=== PATIENT | male | born 1935 | race Caucasian/White ===

== ENCOUNTER 2023-01-03 06:51 | Inpatient (IN) | payer MEDICARE ==
[~2023-01-03] VITALS: Ht 170.2 cm; Wt 84.4 kg
[2023-01-03] VITALS (49 sets, daily range): BP systolic 81–121; BP diastolic 26–81
[2023-01-03] MEDS ORDERED: VANCOMYCIN 1 GM in IV D5W 250 ML IV ONE ×2 (07:00→10:30)
[2023-01-03] MEDS ORDERED: CEFEPIME 1 GM in IV D5W 50 ML IV ONE (07:00)
[2023-01-03] MEDS ORDERED: IV NS 0.9% 1,000 ML BAG IV ONE (07:00)
[2023-01-03] MEDS ORDERED: LIDOCAINE 2% JEL UROJET 10 ML MM ONE (07:04)
[2023-01-03] MEDS ORDERED: CEFEPIME 1 GM VIAL ONE (07:08)
[2023-01-03] MEDS ORDERED: ACETAMINOPHEN ES 500 MG TABLET ONE (07:10)
[2023-01-03] MEDS ORDERED: VANCOMYCIN 1 GM VIAL ONE (07:19)
[2023-01-03] MEDS ORDERED: ACETAMINOPHEN ES 500 MG TABLET PO ONE (07:30)
[2023-01-03 07:33] LABS: BASOPHILS % (AUTO) 0.1 % (0.0-2.0); BILIRUBIN,URINE NEGATIVE (NEGATIVE); COLOR,URINE DARK YELLOW (YELLOW); HEMATOCRIT 33 % (39-51); HEMOGLOBIN 10.9 g/dL (13.5-17.5); LEUKOCYTE ESTERASE ,URINE 3+ (NEGATIVE); LYMPHOCYTES # (AUTO) 0.4 K/uL (0.8-4.8); LYMPHOCYTES % (AUTO) 3.4 % (20.0-44.0); MEAN CORPUSCULAR HGB CONC 33 g/dl (31.0-36.0); MEAN CORPUSCULAR VOLUME 95 fL (80-96); MONOCYTES # (AUTO) 0.6 K/uL (0.1-1.30); MONOCYTES % (AUTO) 5.3 % (2.0-12.0); NEUTROPHILS % (AUTO) 91.2 % (43.0-81.0); NITRITE, URINE NEGATIVE (NEGATIVE); PH,URINE 5.5 (5.0-8.0); PLATELET COUNT (AUTO) 170 K/uL (150-450); PROTEIN,URINE 2+ mg/dl (NEGATIVE); RED BLOOD CELL COUNT(AUTO) 3.49 MIL/uL (4.5-6.0); UGLUCOSE NEGATIVE (NEGATIVE); UROBILINOGEN,URINE 0.2 EU/dL (0.2); WHITE BLOOD COUNT (AUTO) 10.9 K/uL (4.3-11.0)
[2023-01-03 07:35] LABS: BACTERIA,URINE Many /HPF (None Seen); SQUAMOUS EPITHELIAL CELL,UR Few /HPF (None Seen); WBC,URINE 21-50 /HPF (0-3)
[2023-01-03 07:45] LABS: ALANINE AMINOTRANSFERASE 11 U/L (12-78); ALBUMIN 2.5 g/dL (3.4-5.0); ALKALINE PHOSPHATASE 122 U/L (46-116); ASPARTATE AMINOTRANSFERASE 29 U/L (15-37); BILIRUBIN,DIRECT 0.6 mg/dL (0.0-0.2); BILIRUBIN,TOTAL 1.5 mg/dL (0.2-1.0); CALCIUM, SERUM 8.4 mg/dL (8.5-10.1); CARBON DIOXIDE 25 mmol/L (21-32); CHLORIDE 102 mmol/L (98-107); CREATININE 1.9 mg/dL (0.6-1.3); GLUCOSE 139 mg/dL (74-106); POTASSIUM 3.5 mmol/L (3.5-5.1); SODIUM SERUM 137 mmol/L (136-145); TOTAL PROTEIN, SERUM 6.1 g/dL (6.4-8.2); UREA NITROGEN, BLOOD 53 mg/dL (7-18)
[2023-01-03] MEDS ORDERED: APIX2.5T PO (08:23)
[2023-01-03] MEDS ORDERED: SACU1TAB4 PO (08:23)
[2023-01-03] MEDS ORDERED: FURO40TA5 PO (08:23)
[2023-01-03] MEDS ORDERED: ESCI20TA PO (08:23)
[2023-01-03] MEDS ORDERED: CHOL200013 PO (08:23)
[2023-01-03] MEDS ORDERED: OXYB10TA4 PO (08:23)
[2023-01-03] MEDS ORDERED: EZET10TA32 PO (08:23)
[2023-01-03] MEDS ORDERED: CLOT12CR TP (08:23)
[2023-01-03] MEDS ORDERED: HYDR2TAB4 PO (08:23)
[2023-01-03] MEDS ORDERED: CARV12.52 PO (08:23)
[2023-01-03] MEDS ORDERED: TAFA61CA PO (08:23)
[2023-01-03] MEDS ORDERED: ENOXAPARIN SODIUM 80 MG/0.8 ML DISP.SYRIN SQ ONE ×2 (08:29→08:30)
[2023-01-03] MEDS ORDERED: NOREPINEPHRINE 8 MG in IV NS 0.9% 242 ML IV PRN ×5 (09:00→11:00)
[2023-01-03 10:06] LABS: ABG BASE EXCESS -1.5 mmol/L; ABG PCO2 34.6 mmHg (35.0-45.0); ABG PH 7.427 (7.350-7.450); COHb 0.3 % (0.5-1.5); MetHb 0.3 % (0.0-1.5); O2Hb 96.8 % (94.0-97.0); SITE, ABG Right Radial; VENT MODE, BG 4L NC
[2023-01-03] MEDS ORDERED: ACETAMINOPHEN 325 MG TABLET PO PRN (10:30)
[2023-01-03] MEDS ORDERED: NOREPINEPHRINE 8 MG in IV NS 0.9% 250 ML IV PRN ×2 (10:30→11:00)
[2023-01-03] MEDS ORDERED: PIPERACILLIN /TAZOBACTAM 4.5 G in IV D5W 100 ML IV SCH (12:00)
[2023-01-03] MEDS: ZOSYN IVPB 3.375 G in IV D5W 50ml IV SCH ×3 (12:11→23:15)
[2023-01-03 12:42] LABS: BAND % (MANUAL) 23 % (0.0-5.0); NEUTROPHILS % (MANUAL) 62 (42-76)
[2023-01-03 12:47] LABS: LYMPHOCYTES % (MANUAL) 7 % (16-48); MONOCYTES % (MANUAL) 5 % (0-11.0)
[2023-01-03] MEDS: MORPHINE SULFATE INJ 4 MG/ML DISP.SYRIN IV PRN (13:56)
[2023-01-03] MEDS: APIXABAN 2.5 MG TABLET PO SCH (16:38)
[2023-01-03] MEDS: FUROSEMIDE 40 MG/4 ML VIAL IV SCH (17:06)
[2023-01-03] MEDS: EZETIMIBE 10 MG TABLET PO SCH (22:02)
[2023-01-04] VITALS (51 sets, daily range): BP systolic 70–150; BP diastolic 14–93
[2023-01-04 04:57] LABS: BASOPHILS % (AUTO) 0.1 % (0.0-2.0); EOSINOPHILS % (AUTO) 0.4 % (0.0-6.0); HEMATOCRIT 33 % (39-51); HEMOGLOBIN 10.6 g/dL (13.5-17.5); LYMPHOCYTES # (AUTO) 0.6 K/uL (0.8-4.8); LYMPHOCYTES % (AUTO) 3.9 % (20.0-44.0); MEAN CORPUSCULAR HGB CONC 32 g/dl (31.0-36.0); MEAN CORPUSCULAR VOLUME 96 fL (80-96); MONOCYTES # (AUTO) 0.7 K/uL (0.1-1.30); MONOCYTES % (AUTO) 4.7 % (2.0-12.0); NEUTROPHILS # (AUTO) 13.6 K/uL (1.8-8.9); NEUTROPHILS % (AUTO) 90.9 % (43.0-81.0); PLATELET COUNT (AUTO) 123 K/uL (150-450); RED BLOOD CELL COUNT(AUTO) 3.46 MIL/uL (4.5-6.0); WHITE BLOOD COUNT (AUTO) 14.9 K/uL (4.3-11.0)
[2023-01-04] MEDS: ZOSYN IVPB 3.375 G in IV D5W 50ml IV SCH ×2 (05:01→12:13)
[2023-01-04 05:21] LABS: ALANINE AMINOTRANSFERASE 9 U/L (12-78); ALBUMIN 2.3 g/dL (3.4-5.0); ALKALINE PHOSPHATASE 103 U/L (46-116); ASPARTATE AMINOTRANSFERASE 28 U/L (15-37); BILIRUBIN,TOTAL 1.4 mg/dL (0.2-1.0); CALCIUM, SERUM 8.7 mg/dL (8.5-10.1); CARBON DIOXIDE 24 mmol/L (21-32); CHLORIDE 102 mmol/L (98-107); CREATININE 2.1 mg/dL (0.6-1.3); GLUCOSE 152 mg/dL (74-106); POTASSIUM 3.6 mmol/L (3.5-5.1); SODIUM SERUM 137 mmol/L (136-145); TOTAL PROTEIN, SERUM 6.2 g/dL (6.4-8.2); UREA NITROGEN, BLOOD 57 mg/dL (7-18)
[2023-01-04] MEDS: VANCOMYCIN 0.75 GM in IV D5W 250 ML IV SCH (06:00)
[2023-01-04] MEDS: FUROSEMIDE 40 MG/4 ML VIAL IV SCH ×2 (09:30→16:24)
[2023-01-04] MEDS: PANTOPRAZOLE 40 MG VIAL IV SCH (09:31)
[2023-01-04] MEDS: APIXABAN 2.5 MG TABLET PO SCH ×2 (09:32→16:25)
[2023-01-04] MEDS ORDERED: IV NS 0.9% 250 ML IV PRN (12:30)
[2023-01-04] MEDS: TAFAMIDIS 61 MG PO SCH (16:18)
[2023-01-04] MEDS: MEROPENEM 500 MG in IV NS 0.9% 50 ML IV SCH (20:08)
[2023-01-04 20:31] LABS: BILIRUBIN,URINE NEGATIVE (NEGATIVE); COLOR,URINE YELLOW (YELLOW); LEUKOCYTE ESTERASE ,URINE 1+ (NEGATIVE); NITRITE, URINE NEGATIVE (NEGATIVE); PH,URINE 5.5 (5.0-8.0); PROTEIN,URINE TRACE mg/dl (NEGATIVE); UGLUCOSE NEGATIVE (NEGATIVE); UROBILINOGEN,URINE 0.2 EU/dL (0.2)
[2023-01-04 20:33] LABS: CREATININE, URINE 46.5 MG/DL (30.0-125.0)
[2023-01-04 20:35] LABS: RBC,URINE 51-80 /HPF (0-2)
[2023-01-04 20:36] LABS: BACTERIA,URINE RARE /HPF (None Seen); SQUAMOUS EPITHELIAL CELL,UR 0-2 /HPF (None Seen)
[2023-01-04] MEDS: EZETIMIBE 10 MG TABLET PO SCH (21:01)
[2023-01-05] VITALS (34 sets, daily range): BP systolic 79–189; BP diastolic 16–97
[2023-01-05 05:42] LABS: CALCIUM, SERUM 8.9 mg/dL (8.5-10.1); CARBON DIOXIDE 24 mmol/L (21-32); CHLORIDE 100 mmol/L (98-107); CREATININE 2.1 mg/dL (0.6-1.3); GLUCOSE 155 mg/dL (74-106); POTASSIUM 3.5 mmol/L (3.5-5.1); SODIUM SERUM 134 mmol/L (136-145); UREA NITROGEN, BLOOD 60 mg/dL (7-18)
[2023-01-05] MEDS: VANCOMYCIN 0.75 GM in IV D5W 250 ML IV SCH (06:10)
[2023-01-05] MEDS: MEROPENEM 500 MG in IV NS 0.9% 50 ML IV SCH ×2 (08:36→20:30)
[2023-01-05] MEDS: PANTOPRAZOLE 40 MG VIAL IV SCH (08:36)
[2023-01-05] MEDS: FUROSEMIDE 40 MG/4 ML VIAL IV SCH (08:36)
[2023-01-05] MEDS: APIXABAN 2.5 MG TABLET PO SCH ×2 (08:37→16:21)
[2023-01-05 08:38] LABS: BASOPHILS % (AUTO) 0.2 % (0.0-2.0); EOSINOPHILS % (AUTO) 0.5 % (0.0-6.0); HEMATOCRIT 33 % (39-51); HEMOGLOBIN 10.9 g/dL (13.5-17.5); LYMPHOCYTES # (AUTO) 0.6 K/uL (0.8-4.8); LYMPHOCYTES % (AUTO) 4.3 % (20.0-44.0); MEAN CORPUSCULAR HGB CONC 33 g/dl (31.0-36.0); MEAN CORPUSCULAR VOLUME 95 fL (80-96); MONOCYTES # (AUTO) 0.7 K/uL (0.1-1.30); NEUTROPHILS # (AUTO) 12.7 K/uL (1.8-8.9); PLATELET COUNT (AUTO) 126 K/uL (150-450); RED BLOOD CELL COUNT(AUTO) 3.47 MIL/uL (4.5-6.0); WHITE BLOOD COUNT (AUTO) 14.1 K/uL (4.3-11.0)
[2023-01-05] MEDS: TAFAMIDIS 61 MG PO SCH (08:39)
[2023-01-05] MEDS ORDERED: BUMETANIDE INJ 8 MG in IV NS 0.9% 48 ML IV ONE (09:30)
[2023-01-05] MEDS ORDERED: KEY,NONCONTROL,TO KEEP IN PYXI 1 EA MC ONE (20:12)
[2023-01-05] MEDS: EZETIMIBE 10 MG TABLET PO SCH (22:15)
[2023-01-06] VITALS (7 sets, daily range): BP systolic 115–139; BP diastolic 76–85
[2023-01-06] MEDS: VANCOMYCIN 0.75 GM in IV D5W 250 ML IV SCH (05:24)
[2023-01-06 06:56] LABS: BASOPHILS # (AUTO) 0.1 K/uL (0.0-0.2); BASOPHILS % (AUTO) 0.9 % (0.0-2.0); EOSINOPHILS % (AUTO) 0.9 % (0.0-6.0); HEMATOCRIT 33 % (39-51); HEMOGLOBIN 10.5 g/dL (13.5-17.5); LYMPHOCYTES # (AUTO) 0.5 K/uL (0.8-4.8); LYMPHOCYTES % (AUTO) 4.5 % (20.0-44.0); MEAN CORPUSCULAR HGB CONC 32 g/dl (31.0-36.0); MEAN CORPUSCULAR VOLUME 96 fL (80-96); MONOCYTES # (AUTO) 0.6 K/uL (0.1-1.30); MONOCYTES % (AUTO) 5.7 % (2.0-12.0); NEUTROPHILS # (AUTO) 9.3 K/uL (1.8-8.9); PLATELET COUNT (AUTO) 119 K/uL (150-450); RED BLOOD CELL COUNT(AUTO) 3.39 MIL/uL (4.5-6.0); WHITE BLOOD COUNT (AUTO) 10.5 K/uL (4.3-11.0)
[2023-01-06] MEDS ORDERED: KEY,NONCONTROL,TO KEEP IN PYXI 1 EA MC ONE ×3 (07:09→19:48)
[2023-01-06] MEDS: MEROPENEM 500 MG in IV NS 0.9% 50 ML IV SCH ×2 (08:35→20:07)
[2023-01-06] MEDS: PANTOPRAZOLE 40 MG/PACK PACK PO SCH (08:35)
[2023-01-06] MEDS: APIXABAN 2.5 MG TABLET PO SCH ×2 (08:37→16:09)
[2023-01-06] MEDS: TAFAMIDIS 61 MG PO SCH (08:42)
[2023-01-06] MEDS ORDERED: Z GUARD REMEDY 4 OZ OINT TP PRN (09:00)
[2023-01-06] MEDS: Z GUARD REMEDY 4 OZ OINT TP SCH (10:05)
[2023-01-06] MEDS: CLOTRIMAZOLE 1% 15 GM TUBE TP SCH ×2 (10:06→18:47)
[2023-01-06 11:05] LABS: ALANINE AMINOTRANSFERASE 16 U/L (12-78); ALBUMIN 2.4 g/dL (3.4-5.0); ALKALINE PHOSPHATASE 154 U/L (46-116); ASPARTATE AMINOTRANSFERASE 34 U/L (15-37); BILIRUBIN,TOTAL 1.3 mg/dL (0.2-1.0); CALCIUM, SERUM 8.7 mg/dL (8.5-10.1); CARBON DIOXIDE 25 mmol/L (21-32); CHLORIDE 101 mmol/L (98-107); CREATININE 2.1 mg/dL (0.6-1.3); GLUCOSE 199 mg/dL (74-106); MAGNESIUM 2.1 mg/dL (1.8-2.4); PHOSPHORUS 3.6 mg/dL (2.5-4.9); SODIUM SERUM 136 mmol/L (136-145); TOTAL PROTEIN, SERUM 6.9 g/dL (6.4-8.2); UREA NITROGEN, BLOOD 63 mg/dL (7-18)
[2023-01-06] MEDS: EZETIMIBE 10 MG TABLET PO SCH (21:22)
[2023-01-07] VITALS: BP 118/101
[2023-01-07 04:00] VITALS: BP 115/92
[2023-01-07] MEDS: MORPHINE SULFATE INJ 4 MG/ML DISP.SYRIN IV PRN (04:59)
[2023-01-07] MEDS: VANCOMYCIN 0.75 GM in IV D5W 250 ML IV SCH (05:01)
[2023-01-07] MEDS ORDERED: KEY,NONCONTROL,TO KEEP IN PYXI 1 EA MC ONE ×2 (07:05→17:17)
[2023-01-07 07:21] LABS: CALCIUM, SERUM 8.5 mg/dL (8.5-10.1); CARBON DIOXIDE 26 mmol/L (21-32); CHLORIDE 104 mmol/L (98-107); CREATININE 2.1 mg/dL (0.6-1.3); GLUCOSE 190 mg/dL (74-106); POTASSIUM 3.7 mmol/L (3.5-5.1); SODIUM SERUM 139 mmol/L (136-145); UREA NITROGEN, BLOOD 64 mg/dL (7-18)
[2023-01-07] MEDS: FUROSEMIDE 100 MG/10 ML VIAL IV SCH ×3 (07:43→15:56)
[2023-01-07] MEDS: MEROPENEM 500 MG in IV NS 0.9% 50 ML IV SCH (07:43)
[2023-01-07 08:00] VITALS: BP 122/78
[2023-01-07] MEDS: PANTOPRAZOLE 40 MG/PACK PACK PO SCH (08:42)
[2023-01-07] MEDS: APIXABAN 2.5 MG TABLET PO SCH ×2 (08:43→17:03)
[2023-01-07] MEDS: TAFAMIDIS 61 MG PO SCH (08:44)
[2023-01-07] MEDS: CLOTRIMAZOLE 1% 15 GM TUBE TP SCH ×2 (08:45→17:13)
[2023-01-07] MEDS ORDERED: CHLORHEXIDINE GLUCONATE 4% 118 ML BOTTLE TP SCH (09:00)
[2023-01-07] MEDS: FLUOCINONIDE 0.05% CREAM 60 GM TUBE TP SCH ×2 (10:20→17:12)
[2023-01-07] MEDS: Z GUARD REMEDY 4 OZ OINT TP SCH (10:21)
[2023-01-07 12:00] VITALS: BP 120/84
[2023-01-07 16:00] VITALS: BP 128/87
[2023-01-07] MEDS ORDERED: BUME1TAB8 PO (16:22)
[2023-01-07] MEDS ORDERED: POTA10CA43 PO (16:22)
[2023-01-07] MEDS ORDERED: METO2.5T2 PO (16:22)
[2023-01-07] MEDS ORDERED: EMPA10TA PO (16:22)
[2023-01-07] MEDS ORDERED: CEPH250C PO (16:23)
[2023-01-07] MEDS ORDERED: CEFEPIME 1 GM in IV D5W 50 ML IV SCH (17:00)
== END 2023-01-07 18:58 | disposition home health service (06) | DRG 871 ==
LOC: ER 06:53 → ICU 09:59 → TELE-TD 01-05 19:09 → TELE1 01-06 11:08 → MEDSG1 01-07 12:05
PROVIDERS: ADMIT Internal Medicine; ATTEND Nurse Practitioner Acute Care
PROC: 05HB33Z Insertion of Infusion Device into Right Basilic Vein, Percutaneous Approach (ICD-10-PCS; principal; 2023-01-04)
DX: A41.50 Gram-negative sepsis, unspecified (principal); G93.41 Metabolic encephalopathy; I21.A1 Myocardial infarction type 2; N17.0 Acute kidney failure with tubular necrosis; R65.21 Severe sepsis with septic shock; I50.43 Acute on chronic combined systolic (congestive) and diastolic (congestive) heart failure; J96.20 Acute and chronic respiratory failure, unspecified whether with hypoxia or hypercapnia; D68.59 Other primary thrombophilia; N39.0 Urinary tract infection, site not specified; I13.0 Hypertensive heart and chronic kidney disease with heart failure and stage 1 through stage 4 chronic kidney disease, or unspecified chronic kidney disease; I43 Cardiomyopathy in diseases classified elsewhere; E85.4 Organ-limited amyloidosis; L03.115 Cellulitis of right lower limb; L03.116 Cellulitis of left lower limb; E87.20 Acidosis, unspecified; J98.11 Atelectasis; F32.A Depression, unspecified; I48.91 Unspecified atrial fibrillation; Z79.01 Long term (current) use of anticoagulants; Z79.899 Other long term (current) drug therapy; K40.20 Bilateral inguinal hernia, without obstruction or gangrene, not specified as recurrent; N18.9 Chronic kidney disease, unspecified; S80.829A Blister (nonthermal), unspecified lower leg, initial encounter; X58.XXXA Exposure to other specified factors, initial encounter; Y92.9 Unspecified place or not applicable; N40.0 Benign prostatic hyperplasia without lower urinary tract symptoms; Z90.49 Acquired absence of other specified parts of digestive tract; K83.8 Other specified diseases of biliary tract; N48.89 Other specified disorders of penis; K76.9 Liver disease, unspecified; B96.89 Other specified bacterial agents as the cause of diseases classified elsewhere; G62.9 Polyneuropathy, unspecified; Z98.890 Other specified postprocedural states; R60.1 Generalized edema; E88.09 Other disorders of plasma-protein metabolism, not elsewhere classified; N20.0 Calculus of kidney; N28.1 Cyst of kidney, acquired; Z87.440 Personal history of urinary (tract) infections
CPT/HCPCS: 36410; 36415; 36600; 71045-TC; 76770-TC; 80048-TC; 80053-TC; 80076-TC; 80202-TC; 81001; 82533; 82570-TC; 82803-TC; 83605-TC; 83735-TC; 83880; 84100-TC; 84300-TC; 84484-TC; 85025-TC; 85730-TC; 87040-TC; 87081-TC; 87086-TC; 93307-TC; 93970-TC; 97112-TC; 97116-TC; 97530-TC; C9113; C9803; G0378; J0692; J1650; J1940; J2185; J2270; J2543; J3370; J3490; J7030; J7050; J7060